=== PATIENT | female | born 1990 | race Hispanic/Latino ===

== ENCOUNTER 2017-07-28 14:17 | Inpatient (IN) | payer BC, OTHER ==
[~2017-07-28] VITALS: Ht 167.6 cm; Wt 154.2 kg
[2017-07-28 15:17] LABS: BASOPHILS % (AUTO) 0.5 % (0.0-5.0); EOSINOPHILS % (AUTO) 0.4 % (0.0-8.0); LYMPHOCYTES % (AUTO) 5.4 % (21.0-51.0); MEAN CORPUSCULAR HEMOGLOBIN 26.4 pg (27.0-33.0); MEAN CORPUSCULAR HGB CONC 33.1 g/dL (32.0-36.0); MEAN CORPUSCULAR VOLUME 79.9 fL (79-99); MONOCYTES % (AUTO) 6.5 % (3.0-13.0); NEUTROPHILS % (AUTO) 87.2 % (40.0-77.0); PLATELET COUNT (AUTO) 355 K/uL (130-400); RED BLOOD CELL COUNT(AUTO) 3.76 MIL/uL (4.00-5.50); RED CELL DISTRIBUTION WIDTH 14.1 % (11.0-15.5); WHITE BLOOD COUNT (AUTO) 21.2 K/uL (4.8-10.8)
[2017-07-28 15:30] LABS: POTASSIUM 3.7 mmol/L (3.5-5.1)
[2017-07-28 15:36] LABS: ALBUMIN 3.1 g/dL (3.5-5.0); BILIRUBIN,TOTAL 0.4 mg/dL (0.2-1.0); TOTAL PROTEIN, SERUM 7.6 g/dL (6.0-8.3)
[2017-07-28 15:37] LABS: APPEARANCE,URINE Turbid (CLEAR); BILIRUBIN,URINE Negative (NEGATIVE); COLOR,URINE Yellow (YELLOW); GLUCOSE, URINE (UA) Negative (NEGATIVE); KETONES,URINE Negative (NEGATIVE); LEUKOCYTE ESTERASE ,URINE Small (NEGATIVE); NITRATE,URINE Negative (NEGATIVE); OCCULT BLOOD,URINE Negative (NEGATIVE); PROTEIN,URINE POS 1+ (NEGATIVE)
[2017-07-28] MEDS ORDERED: ONDANSETRON HCL 4 MG/2 ML VIAL ONE (15:39)
[2017-07-28] MEDS ORDERED: SODIUM CHLORIDE 0.9% 1000ML 1,000 ML IV ONE ×2 (15:39→19:21)
[2017-07-28] MEDS ORDERED: MORPHINE SULFATE 4 MG/1ML SYG ONE (15:39)
[2017-07-28 15:55] LABS: BACTERIA,URINE Many /HPF (None Seen); RBC,URINE None Seen /HPF (0-1)
[2017-07-28] MEDS: SODIUM CHLORIDE 0.9% 1000ML 1,000 ML IV SCH (19:00)
[2017-07-28] MEDS: CEFTRIAXONE SODIUM 1 GM IVP SCH (19:00)
[2017-07-28] MEDS ORDERED: MORPHINE SULFATE 2 MG/ML 1ML SYG IVP PRN (19:00)
[2017-07-28] MEDS ORDERED: CEFTRIAXONE SODIUM 1 GM ONE (19:21)
[2017-07-28] MEDS ORDERED: SODIUM CHLORIDE 0.9% 50 ML IV ONE (19:23)
[2017-07-28] MEDS ORDERED: GLUCAGON 1MG KIT 1 MG ML IM PRN (19:30)
[2017-07-28] MEDS ORDERED: LORAZEPAM 0.5 MG TABLET PO PRN (19:30)
[2017-07-28] MEDS ORDERED: KETOROLAC TROMETHAMINE 30MG/ML IV PRN (19:30)
[2017-07-28] MEDS ORDERED: DEXTROSE 50%-WATER 50 ML DISP.SYRIN IV PRN (19:30)
[2017-07-28] MEDS ORDERED: HYDRALAZINE HCL 20 MG/ML VIAL IV PRN (19:30)
[2017-07-28 20:50] VITALS: BP 134/73
[2017-07-28] MEDS: INSULIN HUMULIN R 100 UNIT/ML 3ML SQ SCH (21:00)
[2017-07-28] MEDS: FAMOTIDINE/PF 20 MG/2 ML VIAL IV SCH (21:00)
[2017-07-28 23:25] VITALS: BP 155/76
[2017-07-29 03:50] VITALS: BP 155/66
[2017-07-29 05:14] LABS: BASOPHILS % (AUTO) 0.3 % (0.0-5.0); EOSINOPHILS % (AUTO) 0.3 % (0.0-8.0); HEMATOCRIT 27.5 % (36-48); LYMPHOCYTES % (AUTO) 5.5 % (21.0-51.0); MEAN CORPUSCULAR HEMOGLOBIN 27.6 pg (27.0-33.0); MEAN CORPUSCULAR HGB CONC 34.1 g/dL (32.0-36.0); MEAN CORPUSCULAR VOLUME 80.8 fL (79-99); MONOCYTES % (AUTO) 6.7 % (3.0-13.0); NEUTROPHILS % (AUTO) 87.2 % (40.0-77.0); PLATELET COUNT (AUTO) 325 K/uL (130-400); RED CELL DISTRIBUTION WIDTH 13.7 % (11.0-15.5); WHITE BLOOD COUNT (AUTO) 16.3 K/uL (4.8-10.8)
[2017-07-29 05:28] LABS: ALBUMIN 2.9 g/dL (3.5-5.0); BILIRUBIN,TOTAL 0.4 mg/dL (0.2-1.0); CREATININE 1.1 mg/dL (0.5-1.5); HEMOGLOBIN A1C 5.4 % (4.0-6.0); POTASSIUM 3.6 mmol/L (3.5-5.1); TOTAL PROTEIN, SERUM 7.2 g/dL (6.0-8.3)
[2017-07-29] MEDS: INSULIN HUMULIN R 100 UNIT/ML 3ML SQ SCH ×4 (05:50→20:40)
[2017-07-29 07:55] VITALS: BP 168/80
[2017-07-29] MEDS: ENOXAPARIN SODIUM 40 MG/0.4 ML SYRINGE SQ SCH (08:24)
[2017-07-29] MEDS: FAMOTIDINE/PF 20 MG/2 ML VIAL IV SCH ×2 (08:24→20:40)
[2017-07-29] MEDS: SODIUM CHLORIDE 0.9% 1000ML 1,000 ML IV SCH ×2 (08:25→21:35)
[2017-07-29 11:14] VITALS: BP 136/68
[2017-07-29 16:42] VITALS: BP 127/67
[2017-07-29] MEDS ORDERED: LACTATED RINGERS 1000ML 1,000 ML IV SCH (18:03)
[2017-07-29] MEDS: CEFTRIAXONE SODIUM 1 GM IVP SCH (19:23)
[2017-07-29 20:50] VITALS: BP 98/67
[2017-07-30] VITALS (7 sets, daily range): BP systolic 106–146; BP diastolic 61–96
[2017-07-30] MEDS: INSULIN HUMULIN R 100 UNIT/ML 3ML SQ SCH ×4 (07:15→21:00)
[2017-07-30] MEDS: FAMOTIDINE/PF 20 MG/2 ML VIAL IV SCH ×2 (09:08→21:18)
[2017-07-30] MEDS: ENOXAPARIN SODIUM 40 MG/0.4 ML SYRINGE SQ SCH (09:10)
[2017-07-30] MEDS: SODIUM CHLORIDE 0.9% 1000ML 1,000 ML IV SCH ×2 (09:16→21:28)
[2017-07-30] MEDS ORDERED: METO1TAB13 PO (12:42)
[2017-07-30] MEDS ORDERED: PRAZ2CAP2 PO (12:42)
[2017-07-30] MEDS ORDERED: METF500T6 PO (12:42)
[2017-07-30] MEDS ORDERED: LITH600C PO (12:42)
[2017-07-30] MEDS ORDERED: LISI40TA4 PO (12:42)
[2017-07-30] MEDS ORDERED: ATOR40TA71 PO (12:42)
[2017-07-30] MEDS ORDERED: SERT100T12 PO (12:42)
[2017-07-30] MEDS: CEFTRIAXONE SODIUM 1 GM IVP SCH (19:14)
[2017-07-30] MEDS: LITHIUM CARBONATE 600 MG PO SCH (21:19)
[2017-07-30] MEDS: PRAZOSIN HCL 2 MG PO SCH (21:20)
[2017-07-30] MEDS: ATORVASTATIN CALCIUM 40 MG TABLET PO SCH (21:23)
[2017-07-31] VITALS (25 sets, daily range): BP systolic 117–143; BP diastolic 59–77
[2017-07-31] MEDS ORDERED: CEFAZOLIN 3GM /D5W 100ML 100 ML IV PRN
[2017-07-31 04:24] LABS: BASOPHILS % (AUTO) 0.8 % (0.0-5.0); EOSINOPHILS % (AUTO) 2.3 % (0.0-8.0); HEMATOCRIT 25.1 % (36-48); LYMPHOCYTES % (AUTO) 11.8 % (21.0-51.0); MEAN CORPUSCULAR HEMOGLOBIN 27.3 pg (27.0-33.0); MEAN CORPUSCULAR HGB CONC 33.9 g/dL (32.0-36.0); MEAN CORPUSCULAR VOLUME 80.6 fL (79-99); NEUTROPHILS % (AUTO) 79.1 % (40.0-77.0); PLATELET COUNT (AUTO) 346 K/uL (130-400); RED BLOOD CELL COUNT(AUTO) 3.11 MIL/uL (4.00-5.50); RED CELL DISTRIBUTION WIDTH 13.6 % (11.0-15.5); WHITE BLOOD COUNT (AUTO) 11.7 K/uL (4.8-10.8)
[2017-07-31 04:40] LABS: CREATININE 0.8 mg/dL (0.5-1.5); POTASSIUM 3.5 mmol/L (3.5-5.1)
[2017-07-31] MEDS: INSULIN HUMULIN R 100 UNIT/ML 3ML SQ SCH ×4 (07:30→21:00)
[2017-07-31] MEDS: METOPROLOL PO SCH (07:58)
[2017-07-31] MEDS: HYDROCHLOROTHIAZIDE PO SCH (07:58)
[2017-07-31] MEDS: LISINOPRIL 40 MG TABLET PO SCH (07:59)
[2017-07-31] MEDS ORDERED: MIDAZOLAM HCL 1 MG/ML 2ML VIAL ONE ×2 (08:09→08:34)
[2017-07-31] MEDS ORDERED: NEOSTIGMINE 5MG/5ML SYR IV ONE (08:33)
[2017-07-31] MEDS ORDERED: LIDOCAINE PF 2% 5ML ABBOJECT ONE (08:33)
[2017-07-31] MEDS ORDERED: ONDANSETRON HCL 4 MG/2 ML VIAL ONE (08:33)
[2017-07-31] MEDS ORDERED: GLYCOPYRROLATE 0.2 MG/ML 5 ML VIAL ONE (08:33)
[2017-07-31] MEDS ORDERED: SUCCINYLCHOLINE 200MG/10ML SYR ONE (08:33)
[2017-07-31] MEDS ORDERED: DEXAMETHASONE SOD PHOSPHATE 10MG/ML 1ML VIAL ONE (08:33)
[2017-07-31] MEDS ORDERED: PROPOFOL 10 MG/ML 20ML VIAL IV ONE (08:34)
[2017-07-31] MEDS ORDERED: FENTANYL CITRATE PF 50 MCG/1 ML 2ML VIAL ONE (08:35)
[2017-07-31] MEDS: CEFAZOLIN SODIUM 1 GM VIAL ONE ×2 (08:36→08:55)
[2017-07-31] MEDS: SODIUM CHLORIDE 0.9% 1000ML 1,000 ML IV SCH ×3 (08:38→15:37)
[2017-07-31] MEDS: FAMOTIDINE/PF 20 MG/2 ML VIAL IV SCH ×2 (09:00→20:55)
[2017-07-31] MEDS: LITHIUM CARBONATE 600 MG PO SCH ×3 (09:00→20:56)
[2017-07-31] MEDS: SERTRALINE HCL 50 MG TABLET PO SCH (09:00)
[2017-07-31] MEDS: ENOXAPARIN SODIUM 40 MG/0.4 ML SYRINGE SQ SCH (09:00)
[2017-07-31] MEDS ORDERED: NEOMY SULF/POLYMYXIN B SULFATE 1 ML AMPUL IR ONE (09:10)
[2017-07-31] MEDS ORDERED: SIMETHICONE 80 MG TAB.CHEW PO PRN (10:15)
[2017-07-31] MEDS ORDERED: PROMETHAZINE HCL 25 MG/ML 1ML AMPULE IM PRN (10:15)
[2017-07-31] MEDS: CEFAZOLIN 3GM /D5W 100ML 100 ML IV SCH ×2 (10:15→18:41)
[2017-07-31] MEDS ORDERED: DOCUSATE SODIUM 100 MG CAP PO PRN (10:15)
[2017-07-31] MEDS ORDERED: BISACODYL 10 MG SUPP.RECT RC PRN (10:15)
[2017-07-31] MEDS ORDERED: CALDOLOR 800MG+NS 250ML 250 ML IV ONE (10:35)
[2017-07-31] MEDS: CALDOLOR 800MG+NS 250ML 250 ML IVPB SCH (18:44)
[2017-07-31] MEDS: ATORVASTATIN CALCIUM 40 MG TABLET PO SCH (20:56)
[2017-07-31] MEDS: PRAZOSIN HCL 2 MG PO SCH (20:56)
[2017-08-01] MEDS: SODIUM CHLORIDE 0.9% 1000ML 1,000 ML IV SCH ×2 (01:11→02:08)
[2017-08-01] MEDS: CEFAZOLIN 3GM /D5W 100ML 100 ML IV SCH (01:55)
[2017-08-01] MEDS: CALDOLOR 800MG+NS 250ML 250 ML IVPB SCH ×2 (02:55→02:57)
[2017-08-01 04:01] VITALS: BP 144/84
[2017-08-01 06:25] LABS: HEMATOCRIT 26.1 % (36-48); MEAN CORPUSCULAR HEMOGLOBIN 26.1 pg (27.0-33.0); MEAN CORPUSCULAR HGB CONC 32.2 g/dL (32.0-36.0); MEAN CORPUSCULAR VOLUME 81.1 fL (79-99); PLATELET COUNT (AUTO) 364 K/uL (130-400); RED BLOOD CELL COUNT(AUTO) 3.22 MIL/uL (4.00-5.50); RED CELL DISTRIBUTION WIDTH 13.8 % (11.0-15.5); WHITE BLOOD COUNT (AUTO) 11.5 K/uL (4.8-10.8)
[2017-08-01 06:33] LABS: CREATININE 0.7 mg/dL (0.5-1.5); POTASSIUM 3.5 mmol/L (3.5-5.1)
[2017-08-01] MEDS: INSULIN HUMULIN R 100 UNIT/ML 3ML SQ SCH ×2 (07:30→21:00)
[2017-08-01 07:49] VITALS: BP 119/74
[2017-08-01] MEDS: ENOXAPARIN SODIUM 40 MG/0.4 ML SYRINGE SQ SCH (09:00)
[2017-08-01] MEDS: HYDROCHLOROTHIAZIDE PO SCH ×2 (09:00→20:45)
[2017-08-01] MEDS: LITHIUM CARBONATE 600 MG PO SCH ×3 (09:00→20:45)
[2017-08-01] MEDS: METOPROLOL PO SCH ×2 (09:00→20:45)
[2017-08-01] MEDS: FAMOTIDINE/PF 20 MG/2 ML VIAL IV SCH ×2 (09:35→20:41)
[2017-08-01] MEDS: SERTRALINE HCL 50 MG TABLET PO SCH (09:36)
[2017-08-01] MEDS: LISINOPRIL 40 MG TABLET PO SCH (09:37)
[2017-08-01] MEDS: LIDOCAINE 5% TOPICAL PATCH TP SCH (09:40)
[2017-08-01 11:24] VITALS: BP 142/92
[2017-08-01] MEDS: IBUPROFEN 800 MG TAB PO SCH (15:35)
[2017-08-01 15:48] VITALS: BP 90/47
[2017-08-01 19:30] VITALS: BP 145/85
[2017-08-01] MEDS: PRAZOSIN HCL 2 MG PO SCH (20:45)
[2017-08-01] MEDS: ATORVASTATIN CALCIUM 40 MG TABLET PO SCH ×2 (20:45→21:20)
[2017-08-02] MEDS: IBUPROFEN 800 MG TAB PO SCH ×2 (00:08→08:31)
[2017-08-02 00:30] VITALS: BP 130/89
[2017-08-02 04:22] VITALS: BP 133/67
[2017-08-02 06:22] LABS: BASOPHILS % (AUTO) 0.7 % (0.0-5.0); EOSINOPHILS % (AUTO) 4.1 % (0.0-8.0); LYMPHOCYTES % (AUTO) 10.1 % (21.0-51.0); MEAN CORPUSCULAR HGB CONC 33.4 g/dL (32.0-36.0); MEAN CORPUSCULAR VOLUME 80.8 fL (79-99); MONOCYTES % (AUTO) 4.8 % (3.0-13.0); NEUTROPHILS % (AUTO) 80.3 % (40.0-77.0); PLATELET COUNT (AUTO) 413 K/uL (130-400); RED BLOOD CELL COUNT(AUTO) 3.22 MIL/uL (4.00-5.50); RED CELL DISTRIBUTION WIDTH 13.7 % (11.0-15.5); WHITE BLOOD COUNT (AUTO) 12.8 K/uL (4.8-10.8)
[2017-08-02 06:46] LABS: CREATININE 0.7 mg/dL (0.5-1.5); POTASSIUM 3.5 mmol/L (3.5-5.1)
[2017-08-02 07:37] VITALS: BP 140/84
[2017-08-02] MEDS: FAMOTIDINE/PF 20 MG/2 ML VIAL IV SCH (08:31)
[2017-08-02] MEDS: LIDOCAINE 5% TOPICAL PATCH TP SCH (08:32)
[2017-08-02] MEDS: METOPROLOL PO SCH (08:33)
[2017-08-02] MEDS: ENOXAPARIN SODIUM 40 MG/0.4 ML SYRINGE SQ SCH (08:33)
[2017-08-02] MEDS: SERTRALINE HCL 50 MG TABLET PO SCH (08:33)
[2017-08-02] MEDS: HYDROCHLOROTHIAZIDE PO SCH (08:33)
[2017-08-02] MEDS: LISINOPRIL 40 MG TABLET PO SCH (08:33)
[2017-08-02] MEDS: LITHIUM CARBONATE 600 MG PO SCH (08:33)
[2017-08-02 11:51] VITALS: BP 142/76
== END 2017-08-02 14:55 | disposition home or self-care (01) | DRG 742 ==
LOC: EDH 14:17 → EDHIP 14:18 → 4AH 20:36 → WSH 07-29 20:50
PROVIDERS: ADMIT Family Medicine; ATTEND Family Medicine
PROC: 0UT50ZZ Resection of Right Fallopian Tube, Open Approach (ICD-10-PCS; principal; 2017-07-31 08:50)
PROC: 0UT00ZZ Resection of Right Ovary, Open Approach (ICD-10-PCS; 2017-07-31 08:50)
DX: N83.291 Other ovarian cyst, right side (principal); N17.9 Acute kidney failure, unspecified; N39.0 Urinary tract infection, site not specified; F19.20 Other psychoactive substance dependence, uncomplicated; Z68.43 Body mass index [BMI] 50.0-59.9, adult; E86.0 Dehydration; E11.9 Type 2 diabetes mellitus without complications; D64.9 Anemia, unspecified; F31.9 Bipolar disorder, unspecified; I10 Essential (primary) hypertension; K66.0 Peritoneal adhesions (postprocedural) (postinfection); N92.6 Irregular menstruation, unspecified; E66.01 Morbid (severe) obesity due to excess calories; Z79.84 Long term (current) use of oral hypoglycemic drugs
CPT/HCPCS: 36415; 74176; 76856; 80048; 80053; 81001; 82948; 83036; 83690; 84703; 85025; 85027; 86850; 86900; 86901; 87070; 87076; 87088; 88104; 88305; A4218; A4344; J0330; J0690; J0696; J1100; J1650; J1741; J1885; J2001; J2250; J2270; J2405; J2704; J2710; J3010; J3490; J7030